=== PATIENT | female | born 1995 | race Caucasian/White ===

== ENCOUNTER 2020-11-14 01:40 | Inpatient (IN) | payer MEDICAID, SELFPAY ==
[2020-11-14 01:40] VITALS: BP 110/62; PULSE 86; RESP 15; TEMP 37.1; O2SAT 96
[2020-11-14 01:41] VITALS: BMI 24.2
[2020-11-14] MEDS: hyDROXYzine 25 mg Capsule 50 MG PO (02:02)
[2020-11-14] MEDS: trazodone 50 mg Tablet PO (02:03)
[2020-11-14 06:00] VITALS: BP 95/50; PULSE 88; RESP 16; TEMP 37.1; O2SAT 98
[2020-11-14 14:00] VITALS: BP 108/61; PULSE 69; RESP 18; TEMP 36.8; O2SAT 97
--- NOTE | 2020-11-14 18:58 | P.HP_ITS ---
Providers/Chief Complaint Admitting Physician: David Samson MD Chief Complaint: SI HPI NPU History of Present Illness Tanna Hollingsworth is a 25 year old female presented to the outside hospital endorsing suicidality, depression and not being on medications. She was transferred to [facility] and admitted to the neuropsychiatric unit for definitive treatment of those issues. She reports she had been inpatient psychiatrically and [facility]. She denies significant outpatient services. She reports she had been prescribed medications but had not picked them up. Then reported that at 1 point she had been on Klonopin for anxiety. She reports that she has had a suicide attempt but was unclear about when that was. She endorses smoking cigarettes, drinking alcohol sometimes, but denied marijuana or any other illicit drugs currently she reports he had been in a rehab but has never had a DUI. She reports that the reason why she is here is that she was having suicidal thoughts with difficult about how to kill herself. She does with her parents and is not really sure why things started being like this. We discussed the risk benefits and alternatives of calling Briseyda in [place] to determine what medications he has been on including those or some other antidepressant. She understood agreed proceed as documented in his note. Psychiatric history: As above. Substance use history: As above. Family history: Patient denies mental health or addiction issues on either side of the family and denies suicide attempts or completions in the family. Developmental history: There were no problems with the , or delivery, learned to walk and talk and met developmental milestones on time, and denies need for speech therapy, learning support, emotional support or special education classes. Psychosocial history: She reports her mother and father were together he was born and that she was the only product of that union. She reports that her childhood was fine and she denied any emotional, physical or sexual abuse. She graduated from high school. Reports that she not attracted any body now. Her longest relationship was 4 years. She reports he been 1 time, he never had any children, she never been in the , and she does believe in God. 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 She currently lives in a house with her parents and her little brother. Legal history: Reports been in prison 1 time. Medical history: She denies any significant medical history. Meds NPU Home Medications Medication Instructions Recorded Confirmed Last Taken Type clonazepam 0.5 mg PO TID PRN 11/14/20 11/14/20 Unknown History oxcarbazepine 900 mg PO BEDTIME 11/14/20 11/14/20 Unknown History Allergies Allergy/AdvReac Type Severity Reaction Status Date / Time No Known Allergies Allergy Verified 11/14/20 02:02 Mental Status Exam MSE Comments: This is a well-nourished well-developed white female in hospital scrubs with limited grooming and eye contact. No abnormal movement except for significant psychomotor retardation. Semicooperative with exam in mild distress. Speech was limited and decreased rate and volume. Mood described as bad, affect subdued. Thought process organized. Thought content: Patient endorsed suicidal ideation but denied homicidal ideation, she endorsed paranoia and appeared guarded, she denied auditory or visual hallucinations. Attention and concentration were mostly intact and memory was somewhat reliable but none were formally tested. She is alert and oriented x3. Insight and judgment appear limited, impulse control appeared limited. Vitals/I&O/Wt Last Vital Signs Temp 97.9 F 11/14/20 21:12 Pulse 74 11/14/20 21:12 Resp 15 11/14/20 21:12 BP 97/55 11/14/20 21:12 Pulse Ox 96 11/14/20 21:12 Weight last 48 hrs Weight 68.04 kg Weight 68.039 kg A&P Assessment and plan (1) Depression: Status: Acute (2) Methamphetamine abuse: Status: Acute (3) Psychosis: Status: Acute Additional A&P Information This is a 25-year-old white female with recent history of mental health treatment without follow-up and a positive drug screen for methamphetamines which she did not personally disclose who endorses depression and suicidality. 1. Continue current medication. 2. Continue every 15 minute checks for safety. 3. Encourage individual, group and milieu therapies. 4. Encourage sober living treatment after discharge at the highest level of care to which he is willing to commit. 5. We will determine what her medication regimen was supposed to be from her previous inpatient stay and consider restarting those medications and try to convince her that there may be benefit from an antipsychotic to help with the thought disorder which is likely drug-induced. Involuntary Hold Information 96 Hour Hold: 96 Hour Involuntary Admission: No Attestations NPU Medical Necessity Statement*: Inpatient hospitalization is medically necessary and the clinically appropriate intervention at this time. We will monitor medications and make changes as indicated. Patient will be in the hospital for over two midnights. Likely length of stay 3 to 5 days. Coding Level of Care Code Acute Manager Photography for Nima Daniesld Diagnoses Depression F32.9 Methamphetamine abuse F15.10 Psychosis F29
[2020-11-14 21:12] VITALS: BP 97/55; PULSE 74; RESP 15; TEMP 36.6; O2SAT 96
[2020-11-15 05:59] VITALS: BP 97/60; PULSE 65; RESP 17; TEMP 36.8; O2SAT 98
[2020-11-15 14:00] VITALS: BP 102/62; PULSE 81; RESP 16; TEMP 37; O2SAT 98
--- NOTE | 2020-11-15 15:32 | PC.NURSE ---
CONTACTED [facility] IN [place], [place]. PHARMACIST SAID THE PT NEVER PICKED UP PRESCRIPTIONS OF SEROQUEL 50 MG DAILY, SEROQUEL 100 MG HS, LEXAPRO 20 MG DAILY. INFO RELAYED TO DR. AWAD
[2020-11-15] MEDS: escitalopram 10 mg Tablet PO (15:39)
--- NOTE | 2020-11-15 18:14 | PM.NPN ---
Subjective NPU Subjective: Interval history: Tanna presents today continue to be isolative and likely paranoid. She continues to be resistant to the role that addiction may have played in her presentation but she is open to starting Lexapro after discussion of the risks, benefits and alternatives she understood and agreed proceed as is documented in this note. Mental Status Exam MSE Comments: This is a well-nourished well-developed white female in hospital scrubs with limited grooming and eye contact. No abnormal movement except for significant psychomotor retardation. Semicooperative with exam in mild distress. Speech was limited and decreased rate and volume. Mood described as about the same, affect subdued. Thought process organized. Thought content: Patient endorsed suicidal ideation but denied homicidal ideation, she endorsed paranoia and appeared guarded, she denied auditory or visual hallucinations. Attention and concentration were mostly intact and memory was somewhat reliable but none were formally tested. She is alert and oriented x3. Insight and judgment appear limited, impulse control appeared limited. Vitals/I&O/Wt Last Vital Signs Temp 98.0 F 11/15/20 21:59 Pulse 79 11/15/20 21:59 Resp 16 11/15/20 21:59 BP 108/68 11/15/20 21:59 Pulse Ox 97 11/15/20 21:59 A&P Additional A&P Information (1) Depression: (2) Methamphetamine abuse: (3) Psychosis: Additional A&P Information This is a 25-year-old white female with recent history of mental health treatment without follow-up and a positive drug screen for methamphetamines which she did not personally disclose who endorses depression and suicidality. 1. Continue current medication. Start Lexapro 10 mg p.o. every morning. 2. Continue every 15 minute checks for safety. 3. Encourage individual, group and milieu therapies. 4. Encourage sober living treatment after discharge at the highest level of care to which he is willing to commit. 5. Try to convince her that there may be benefit from an antipsychotic to help with the thought disorder which is likely drug-induced. Involuntary Hold Information 96 Hour Hold: 96 Hour Involuntary Admission: No Attestations NPU Medical Necessity Statement*: Inpatient hospitalization is medically necessary and the clinically appropriate intervention at this time. We will monitor medications and make changes as indicated. Likely length of stay 2-4 days. Coding Level of Care Code Acute Communications Controller for Nima Maurer
[2020-11-15] MEDS: acetaminophen 325 mg Tablet 650 MG PO (18:41)
[2020-11-15 21:59] VITALS: BP 108/68; PULSE 79; RESP 16; TEMP 36.7; O2SAT 97
[2020-11-16 06:00] VITALS: BP 89/62; PULSE 63; RESP 18; TEMP 36.7; O2SAT 98
[2020-11-16] MEDS: escitalopram 10 mg Tablet PO (07:37)
[2020-11-16 14:00] VITALS: BP 104/57; PULSE 66; RESP 20; TEMP 36.8; O2SAT 93
--- NOTE | 2020-11-16 16:08 | PM.NPN ---
Subjective NPU Subjective: Interval history: The patient reports feeling better today, less depressed. No side effects on Lexapro. Slept okay last night. Quite eager to go home. Says that suicidal ideation is much decreased. Mental Status Exam MSE Comments: This is a well-nourished well-developed white female in hospital scrubs with limited grooming and eye contact. No abnormal movement except for some psychomotor retardation. More cooperative with exam today. Quantity of speech was improved. Mood described as improved, affect fairly pleasant. Thought process organized. Thought content: Patient endorsed suicidal ideation but says it is better. She denied homicidal ideation, she endorsed paranoia and appeared guarded, she denied auditory or visual hallucinations. Attention and concentration were mostly intact and memory was somewhat reliable but none were formally tested. She is alert and oriented x3. Insight and judgment appear limited, impulse control appeared limited. Vitals/I&O/Wt Last Vital Signs Temp 98.8 F 11/17/20 20:15 Pulse 71 11/17/20 20:15 Resp 18 11/17/20 20:15 BP 97/58 11/17/20 20:15 Pulse Ox 97 11/17/20 20:15 11/17/20 11/17/20 11/17/20 06:59 14:59 22:59 Intake Total Balance A&P Additional A&P Information (1) Depression: (2) Methamphetamine abuse: (3) Psychosis: Additional A&P Information This is a 25-year-old white female with recent history of mental health treatment without follow-up and a positive drug screen for methamphetamines which she did not personally disclose who endorses depression and suicidality. 1. Continue current medication. Started Lexapro 10 mg p.o. every morning. 2. Continue every 15 minute checks for safety. 3. Encourage individual, group and milieu therapies. 4. Encourage sober living treatment after discharge at the highest level of care to which he is willing to commit. 5. Try to convince her that there may be benefit from an antipsychotic to help with the thought disorder which is likely drug-induced. 6. Patient is voluntary and eager to leave. Willing to stay 1 more day. Involuntary Hold Information 96 Hour Hold: 96 Hour Involuntary Admission: No Attestations NPU Medical Necessity Statement*: Inpatient hospitalization is medically necessary and the clinically appropriate intervention at this time. We will monitor medications and make changes as indicated. Likely length of stay 1-3 days. Coding Level of Care Code Acute Air Cargo Specialist for Nima Maurer
[2020-11-16] MEDS: acetaminophen 325 mg Tablet 650 MG PO (17:38)
[2020-11-16 22:00] VITALS: BP 104/57; PULSE 66; RESP 17; TEMP 36.8; O2SAT 93
[2020-11-17 06:00] VITALS: BP 101/64; PULSE 66; RESP 18; TEMP 36.7; O2SAT 99
[2020-11-17] MEDS: acetaminophen 325 mg Tablet 650 MG PO (06:28)
[2020-11-17] MEDS: escitalopram 10 mg Tablet PO (08:54)
[2020-11-17 11:39] VITALS: BP 101/64; PULSE 66; RESP 18; TEMP 36.7; O2SAT 99
--- NOTE | 2020-11-17 11:58 | P.DS_ITS ---
Diagnoses at Discharge Discharge Diagnosis (1) Methamphetamine abuse: Status: Chronic Reason for Visit Reason for Visit: SI Involuntary Hold Information 96 Hour Hold: 96 Hour Involuntary Admission: No Discharge Data Vitals: Last Vital Signs Temp 98.1 F 11/17/20 11:39 Pulse 66 11/17/20 11:39 Resp 18 11/17/20 11:39 BP 101/64 11/17/20 11:39 Pulse Ox 99 11/17/20 11:39 Discharge Plan Discharge Condition: Stable Prescriptions: New escitalopram oxalate 10 mg Tablet 10 mg PO DAILY 30 Days Qty: 30 RF: 1 Discontinued clonazepam 0.5 mg tablet 0.5 mg PO TID PRN (Reason: Anxiety) RF: 0 oxcarbazepine 300 mg tablet 900 mg PO BEDTIME RF: 0 Discharge Orders: Discharge Order (Routine); Ordered 11/17/20 Ordered By: Alan Georges Referrals: [facility] [Other] - 11/23/20 1:00 am (Please arrive 30 minutes early to fill out paperwork. 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 Masks are required to enter building. ) [facility] [Other] (Please call to schedule an appointment. ) [facility] [Outside] Discharge Diet: Usual diet Discharge Activity: Resume usual activity Patient Instructions: Generalized Anxiety Disorder (DC), Opioid Safety Coding Level of Care Code Acute Chg FW DC note Diagnoses Methamphetamine abuse F15.10
[2020-11-17] MEDS: OLANZapine 5 mg ODT PO (13:16)
[2020-11-17] MEDS: nicotine 2 mg Gum BUCCAL (13:24)
[2020-11-17] MEDS: ziprasidone 20 mg/mL SDV IM (13:38)
[2020-11-17] MEDS: water for injection-sterile 10 ML (13:49)
[2020-11-17] MEDS: ziprasidone 20 mg/mL SDV (13:51)
--- NOTE | 2020-11-17 15:20 | PC.NURSE ---
PRN Apx 1350 pt became very agitated when she was informed that she was now being placed on a 96 hour hold. Pt was told previously in the day that she was going to be leaving, after her consult with . he felt that she was still a harm to herself and then placed her on a hold. Pt became very agitated and banged the phone on the wall several times, yelling and screaming, also slamming her door. Administered 20mg of Geodon, pt agreed to take anxiety med.
--- NOTE | 2020-11-17 17:16 | P.PN_ITS ---
Subjective NPU Subjective: Interval history: Patient initially reported being improved, with less suicidal ideation and depression. After her ride was arranged, she told me that she was depressed and suicidal, at the same level as when she admitted. She did not feel she could keep her self safe at home. She also says she was hearing voices all day long. After hearing this report of serious symptoms, I informed her that she would need to stay in the hospital. She then told me she was not depressed, not suicidal, not hearing voices. However she was quite agitated, confused about how the ride, which had been arranged, would be canceled. She was also agitated about the friend she was supposed to stay with. She banged the telephone very hard and yelled loudly. She ended up getting Zyprexa Zydis 5 mg and an injection of Haldol, Ativan, and Benadryl, to calm down. Mental Status Exam MSE Comments: This is a well-nourished well-developed white female in hospital scrubs with limited grooming and eye contact. No abnormal movement except for some psychomotor retardation. She became quite uncooperative. Speech was loud and pressured. Mood initially described as depressed, affect was quite agitated, anxious and angry. Thought process was disorganized. Thought content: Patient endorsed suicidal ideation saying it was worse than yesterday. She denied homicidal ideation. She described auditory hallucinations, which she said were present all of the time, all day long. This is a new report. Attention and concentration were distracted and memory was somewhat reliable but none were formally tested. She is alert and oriented x3. Insight and judgment appear limited, impulse control appeared limited. Vitals/I&O/Wt Last Vital Signs Temp 98.8 F 11/17/20 20:15 Pulse 71 11/17/20 20:15 Resp 18 11/17/20 20:15 BP 97/58 11/17/20 20:15 Pulse Ox 97 11/17/20 20:15 11/17/20 11/17/20 11/17/20 06:59 14:59 22:59 Intake Total Balance A&P Additional A&P Information (1) Depression: Worse (2) Methamphetamine abuse: (3) Psychosis: Worse Additional A&P Information This is a 25-year-old white female with recent history of mental health treatment without follow-up and a positive drug screen for methamphetamines which she did not personally disclose who endorses depression and suicidality. 1. Started Lexapro 10 mg p.o. every morning. We added Abilify 5 mg daily, to start tomorrow, for depression and psychosis. 2. Continue every 15 minute checks for safety. 3. Encourage individual, group and milieu therapies. 4. Encourage sober living treatment after discharge at the highest level of care to which he is willing to commit. 5. Try to convince her that there may be benefit from an antipsychotic to help with the thought disorder which is likely drug-induced. 6. Patient was placed on a 96-hour hold, since she had become more depressed, psychotic, and suicidal, and was refusing to stay in the hospital. Involuntary Hold Information 96 Hour Hold: 96 Hour Involuntary Admission: No Attestations NPU Medical Necessity Statement*: Inpatient hospitalization is medically necessary and the clinically appropriate intervention at this time. We will monitor medications and make changes as indicated. Likely length of stay 2?4 days. Coding Level of Care Code Acute Coloring Checker for Nima Maurer
[2020-11-17 18:30] VITALS: BP 104/62; PULSE 78; RESP 18; TEMP 36.6; O2SAT 97
[2020-11-17 20:15] VITALS: BP 97/58; PULSE 71; RESP 18; TEMP 37.1; O2SAT 97
[2020-11-18 06:00] VITALS: BP 100/64; PULSE 58; RESP 17; TEMP 36.6; O2SAT 97
[2020-11-18] MEDS: ARIPiprazole 10 mg Tablet 5 MG PO (08:46)
[2020-11-18] MEDS: escitalopram 10 mg Tablet PO (08:47)
[2020-11-18] MEDS: OLANZapine 5 mg ODT PO (13:29)
[2020-11-18 14:00] VITALS: BP 109/66; PULSE 69; RESP 17; TEMP 37.1; O2SAT 98
--- NOTE | 2020-11-18 14:39 | P.PN_ITS ---
Subjective NPU Subjective: Interval history: The patient continues to be guarded and resistant to disclosing her experiences. I talked with her some about her memory, because after she broke the phone yesterday, she did not know why it was not working. Today she says, I remember what I did yesterday. She says that the voices are not as bad today. She says she has low energy and slept most of the day. She has been anxious and biting her nails. She says it is hard to concentrate. She denies suicidal ideation. She denies side effects after starting the Abilify. Mental Status Exam MSE Comments: This is a well-nourished well-developed white female in hospital scrubs with limited grooming and eye contact. Minimally cooperative. No psychomotor agitation or retardation. Speech was soft at a regular rate and rhythm. Mood is depressed, affect was anxious and irritable. Thought process was somewhat blocked. Thought content: Patient denied suicidal and homicidal ideation. She continues to have auditory hallucinations, which she says are not as loud or as threatening as before. Attention and concentration are distracted and memory was somewhat reliable but not formally tested. She is alert and oriented x3. Insight and judgment appear limited, impulse control appeared limited. Vitals/I&O/Wt Last Vital Signs Temp 99.1 F 11/19/20 14:00 Pulse 78 11/19/20 14:00 Resp 18 11/19/20 14:00 BP 107/56 11/19/20 14:00 Pulse Ox 97 11/19/20 14:00 A&P Assessment and plan (1) Major depressive disorder, single episode, severe, with psychosis: On Lexapro 10 mg daily and Abilify 5 mg daily Depression continues but psychosis is a little better Status: Acute (2) Methamphetamine abuse: Considering attending substance use treatment Status: Acute (3) Anxiety disorder, unspecified: Has prn medication available Status: Acute Additional A&P Information This is a 25-year-old white female with recent history of mental health treatment without follow-up and a positive drug screen for methamphetamines which she did not personally disclose who endorses depression, suicidality and hearing voices. 1. Started Lexapro 10 mg p.o. every morning. We added Abilify 5 mg daily, to start tomorrow, for depression and psychosis. 2. Continue every 15 minute checks for safety. 3. Encourage individual, group and milieu therapies. 4. Encourage sober living treatment after discharge at the highest level of care to which he is willing to commit. 5. Patient was placed on a 96-hour hold, since she had become more depressed, psychotic, and suicidal, and was refusing to stay in the hospital. Involuntary Hold Information 96 Hour Hold: 96 Hour Involuntary Admission: No Attestations NPU Medical Necessity Statement*: Inpatient hospitalization is medically necessary and the clinically appropriate intervention at this time. We will monitor medications and make changes as indicated. Likely length of stay 2?4 days. Coding Level of Care Code Acute Cooler Operator for lyssa Fwd Diagnoses Major depressive disorder, single episode, severe, with psychosis F32.3 Methamphetamine abuse F15.10 Anxiety disorder, unspecified F41.9
--- NOTE | 2020-11-18 14:48 | PC.NURSE ---
prn 1329 administered 5mg Zyprexa Zydis for anxiety and pt reported hearing voices. will continue to monitor.
[2020-11-18 22:00] VITALS: BP 108/71; PULSE 76; RESP 17; TEMP 36.9; O2SAT 98
[2020-11-18] MEDS: acetaminophen 325 mg Tablet 650 MG PO (22:18)
[2020-11-18] MEDS: trazodone 50 mg Tablet PO (22:18)
[2020-11-19 06:00] VITALS: BP 97/55; PULSE 84; RESP 18; TEMP 37.1; O2SAT 97
[2020-11-19] MEDS: acetaminophen 325 mg Tablet 650 MG PO ×2 (06:06→20:48)
[2020-11-19] MEDS: ARIPiprazole 10 mg Tablet 5 MG PO (08:28)
[2020-11-19] MEDS: nicotine 2 mg Gum BUCCAL ×2 (08:29→12:49)
[2020-11-19] MEDS: escitalopram 10 mg Tablet PO (08:29)
--- NOTE | 2020-11-19 12:03 | P.PN_ITS ---
Subjective NPU Subjective: Interval history: I met with the patient on the bench by the nurses station. Again, she continues to be guarded and only somewhat cooperative. She does not agree that she has the level of severity of illness that her assessment indicates. She says that her mood is okay and she does not feel depressed. She says her appetite is okay, her energy and motivation are low, and she continues to feel nervous about the future. She does not know where she is going to live, for example. She says she could not fall asleep last night and took trazodone, which she thinks made her more awake. She says she has taken melatonin in the past, and thinks she took 30 mg. I explained that that is 3 times the usual maximum dose. She would like to try a lower dose. At a certain point she got frustrated with my questions and just stood up and left. Mental Status Exam MSE Comments: This is a well-nourished well-developed white female in hospital scrubs whose grooming is better. Her eye contact is limited. Minimally cooperative. Some psychomotor agitation. Speech was soft at a regular rate and rhythm. She describes her mood as not depressed but her affect was anxious and irritable. Thought process was somewhat blocked. Thought content: Patient denied suicidal and homicidal ideation. She continues to have auditory hallucinations. Attention and concentration are distracted and memory was somewhat reliable but not formally tested. She is alert and oriented x3. Insight and judgment continue to be limited, impulse control appeared limited. Vitals/I&O/Wt Last Vital Signs Temp 99.1 F 11/19/20 14:00 Pulse 78 11/19/20 14:00 Resp 18 11/19/20 14:00 BP 107/56 11/19/20 14:00 Pulse Ox 97 11/19/20 14:00 A&P Assessment and plan (1) Major depressive disorder, single episode, severe, with psychosis: On Lexapro 10 mg daily and Abilify 5 mg daily Looks depressed and continues to have some psychosis Status: Acute (2) Anxiety disorder, unspecified: Status: Acute (3) Methamphetamine abuse: Status: Chronic Additional A&P Information This is a 25-year-old white female with recent history of mental health treatment without follow-up and a positive drug screen for methamphetamines which she did not personally disclose who endorses depression, suicidality and hearing voices. 1. Started Lexapro 10 mg p.o. every morning. We added Abilify 5 mg daily, to start tomorrow, for depression and psychosis. 2. Continue every 15 minute checks for safety. 3. Encourage individual, group and milieu therapies. 4. Encourage sober living treatment after discharge at the highest level of care to which he is willing to commit. 5. Patient was placed on a 96-hour hold, since she had become more depressed, psychotic, and suicidal, and was refusing to stay in the hospital. Involuntary Hold Information 96 Hour Hold: 96 Hour Involuntary Admission: No Attestations NPU Medical Necessity Statement*: Inpatient hospitalization is medically necessary and the clinically appropriate intervention at this time. We will monitor me dications and make changes as indicated. Likely length of stay 2?4 days. Coding Level of Care Code Acute Yarn Examiner Skeins for g Fwd Diagnoses Major depressive disorder, single episode, severe, with psychosis F32.3 Anxiety disorder, unspecified F41.9 Methamphetamine abuse F15.10
[2020-11-19 14:00] VITALS: BP 107/56; PULSE 78; RESP 18; TEMP 37.3; O2SAT 97
[2020-11-19] MEDS: nicotine 21 mg Patch 1 PATCH TRANSDERMA (14:06)
[2020-11-19] MEDS: trazodone 50 mg Tablet PO (20:47)
[2020-11-19] MEDS: OLANZapine 5 mg ODT PO (20:49)
[2020-11-19 20:51] VITALS: BP 118/75; PULSE 93; RESP 18; TEMP 38.1; O2SAT 98
--- NOTE | 2020-11-19 20:55 | PC.NURSE ---
trazodone 50mg given for sleep. Zyprexa 5mg given PO anxiety / agitation
[2020-11-20 06:00] VITALS: BP 100/63; PULSE 86; RESP 16; TEMP 37.2; O2SAT 99
[2020-11-20] MEDS: ARIPiprazole 10 mg Tablet 5 MG PO ×2 (08:07→14:13)
[2020-11-20] MEDS: escitalopram 10 mg Tablet PO (08:07)
[2020-11-20] MEDS: nicotine 21 mg Patch 1 PATCH TRANSDERMA (10:21)
[2020-11-20 14:00] VITALS: BP 109/73; PULSE 89; RESP 16; TEMP 36.8; O2SAT 98
[2020-11-20] MEDS: escitalopram 10 mg Tablet 5 MG PO (14:13)
--- NOTE | 2020-11-20 14:16 | PM.NPN ---
Subjective NPU Subjective: Interval history: The patient was in quite a different space today. She apologized for getting irritated with me yesterday. She said she had been looking around, and did not want to end up like some of our older patients. She said she needed to get her stuff together. In spite of this insight, she says that her mood is still quite depressed and anxious. She told me about her social anxiety. She struggles with big crowds, going to [facility], even in gas stations. She feels that people are staring at her and talking about her. She realizes how much this has impacted her life. She feels that the social anxiety began between 1 and 2 years ago. She also started hearing voices about a year ago. While sometimes they bother her, sometimes she feels it is nice to have someone to talk to. She also reports ideas of reference, feeling that the television is talking at her at times. The voices are worse when she is laying in bed, i.e., not distracted. They are at the same volume as they have been they do tell her to do things, like stay in her room. There are no commands to harm herself or others. We also talked about what she will need to do to get her life together. She really wants to treat her anxiety and the voices. She would also like to get a job. She now feels it would be a good idea for her to go to substance use rehabilitation inpatient treatment. She would like to go to [facility], where she has been before, if possible. The patient says that she took some medication previously that was helpful. Recalled [facility] pharmacy in [place], [place]. She had prescriptions for Seroquel 50 mg daily, Seroquel 100 mg at at bedtime, and Lexapro 20 mg daily. She never picked these medications up, but they were likely the medicine she was referring to is helpful. Mental Status Exam MSE Comments: This is a well-nourished well-developed white female in hospital scrubs whose grooming is good. Her eye contact is much better today. More cooperative. Some psychomotor agitation. Speech was at a regular rate and rhythm and volume. She describes her mood as depressed and anxious. Affect is serious but pleasant. Thought process is logical and goal-directed. Thought content: Patient denied suicidal and homicidal ideation. She continues to have auditory hallucinations. No delusions are noted. Attention and concentration are intact. Memory is reliable but not formally tested. She is alert and oriented x3. Insight and judgment are much improved, impulse control is improved. Vitals/I&O/Wt Last Vital Signs Temp 99.0 F 11/20/20 06:00 Pulse 86 11/20/20 06:00 Resp 16 11/20/20 06:00 BP 100/63 11/20/20 06:00 Pulse Ox 99 11/20/20 06:00 Weight last 48 hrs Weight 68.04 kg A&P Assessment and plan (1) Major depressive disorder, single episode, severe, with psychosis: Status: Acute (2) Social anxiety disorder: Status: Acute (3) Anxiety disorder, unspecified: Status: Acute (4) Methamphetamine abuse: Status: Chronic Additional A&P Information This is a 25-year-old white female with recent history of mental health treatment without follow-up and a positive drug screen for methamphetamines which she did not personally disclose who endorses depression, suicidality and hearing voices. 1. Increase Lexapro to 15 mg every morning. Increase Abilify to 10 mg daily, for depression and psychosis. Add Seroquel 50 mg 4 times daily as needed for anxiety. 2. Continue every 15 minute checks for safety. 3. Encourage individual, group and milieu therapies. 4. Encourage sober living treatment after discharge at the highest level of care to which he is willing to commit. 5. Patient was placed on a 96-hour hold, since she had become more depressed, psychotic, and suicidal, and was refusing to stay in the hospital. 6. Seek placement at a substance use treatment facility. Involuntary Hold Information 96 Hour Hold: 96 Hour Involuntary Admission: No Attestations NPU Medical Necessity Statement*: Inpatient hospitalization is medically necessary and the clinically appropriate intervention at this time. We will monitor medications and make changes as indicated. Likely length of stay 1-3 days. Coding Level of Care Code Acute Air Quality Manager for g Fwd Diagnoses Major depressive disorder, single episode, severe, with psychosis F32.3 Social anxiety disorder F40.10 Anxiety disorder, unspecified F41.9 Methamphetamine abuse F15.10
[2020-11-20 22:00] VITALS: BP 104/65; PULSE 88; RESP 17; TEMP 37.1; O2SAT 96
[2020-11-21 06:00] VITALS: BP 99/66; PULSE 86; RESP 15; TEMP 36.9; O2SAT 97
[2020-11-21] MEDS: escitalopram 10 mg Tablet 15 MG PO (07:54)
[2020-11-21] MEDS: ARIPiprazole 10 mg Tablet PO (07:54)
[2020-11-21] MEDS: nicotine 21 mg Patch 1 PATCH TRANSDERMA (08:06)
[2020-11-21] MEDS: quetiapine 25 mg Tablet 50 MG PO (10:37)
--- NOTE | 2020-11-21 10:37 | PC.NURSE ---
Addendum entered by Maddie Jeronimo LPN 11/21/20 11:15: PRN MED EFFECTIVE NO FURTHER C/O ANXIETY Original Note: PRN SEROQUEL 50 MG GIVEN PO PER PHYSICIAN REQUEST AND PT C/O ANXIETY WILL CONT TO MONITOR
--- NOTE | 2020-11-21 11:53 | P.PN_ITS ---
Subjective NPU Subjective: Interval history: I had another long talk with the patient today. When I asked her how her mood is she replies, not bad, all right. When I ask if she could rate her depression between 0 and 10, she rates it at 7/10, which is quite high. She becomes tearful as she says that she actually does feel depressed. She just does not show it to people. She says she has no motivation to live really. She says she knows that her family cares about her, but she is telling herself that they do not care. This is the way that it feels to her. She has both passive and active suicidal ideation. She rates her anxiety at 8/10?9/10 in severity. Talked about using Seroquel to treat her anxiety. She did not take an as needed dose of Seroquel yesterday but will try 1 today. The hallucinations continue but there are no commands to harm self or others. She does not crave drugs, only cigarettes. She has no side effects from the increase in medication. Mental Status Exam MSE Comments: This is a well-nourished well-developed white female in hospital scrubs whose grooming is good. Her eye contact is improved. Cooperative. Some psychomotor agitation. Speech was at a regular rate and rhythm and volume. She describes her mood as depressed and anxious. Affect is serious and becomes tearful when talking about how bad she feels. Thought process is logical and goal-directed. Thought content: Patient admits to having suicidal ideation today. She continues to have auditory hallucinations. No delusions are noted. Attention and concentration are intact. Memory is reliable but not formally tested. She is alert and oriented x3. Insight and judgment are much improved, impulse control is improved. Vitals/I&O/Wt Last Vital Signs Temp 98.7 F 11/21/20 14:00 Pulse 98 11/21/20 14:00 Resp 17 11/21/20 14:00 BP 105/71 11/21/20 14:00 Pulse Ox 98 11/21/20 14:00 Weight last 48 hrs Weight 68.04 kg A&P Assessment and plan (1) Social anxiety disorder: Status: Acute (2) Major depressive disorder, single episode, severe, with psychosis: Status: Acute (3) Anxiety disorder, unspecified: Status: Acute (4) Methamphetamine abuse: Status: Chronic Additional A&P Information This is a 25-year-old white female with recent history of mental health treatment without follow-up and a positive drug screen for methamphetamines which she did not personally disclose who endorses depression, suicidality and hearing voices. 1. Increase Lexapro to 15 mg every morning. Increase Abilify to 10 mg daily, for depression and psychosis. Add Seroquel 50 mg 4 times daily as needed for anxiety. 2. Continue every 15 minute checks for safety. 3. Encourage individual, group and milieu therapies. 4. Encourage sober living treatment after discharge at the highest level of care to which he is willing to commit. 5. Patient was placed on a 96-hour hold, since she had become more depressed, psychotic, and suicidal, and was refusing to stay in the hospital. 6. Seek placement at a substance use treatment facility. Involuntary Hold Information 96 Hour Hold: 96 Hour Involuntary Admission: No Attestations NPU Medical Necessity Statement*: Inpatient hospitalization is medically necessary and the clinically appropriate intervention at this time. We will monitor medications and make changes as indicated. Likely length of stay 2-3 days. Coding Level of Care Code Acute Outdoor Studies Director for Dreag Fwd Diagnoses Social anxiety disorder F40.10 Major depressive disorder, single episode, severe, with psychosis F32.3 Anxiety disorder, unspecified F41.9 Methamphetamine abuse F15.10
[2020-11-21 14:00] VITALS: BP 105/71; PULSE 98; RESP 17; TEMP 37.1; O2SAT 98
[2020-11-21] MEDS: acetaminophen 325 mg Tablet 650 MG PO (17:39)
[2020-11-21 20:53] VITALS: BP 124/74; PULSE 98; RESP 15; TEMP 36.7; O2SAT 98
[2020-11-22 06:00] VITALS: BP 115/49; PULSE 88; RESP 17; TEMP 36.9; O2SAT 98
[2020-11-22] MEDS: escitalopram 10 mg Tablet 15 MG PO (07:55)
[2020-11-22] MEDS: ARIPiprazole 10 mg Tablet PO (07:56)
[2020-11-22] MEDS: nicotine 21 mg Patch 1 PATCH TRANSDERMA (10:15)
[2020-11-22] MEDS: quetiapine 25 mg Tablet 50 MG PO (11:47)
--- NOTE | 2020-11-22 11:48 | PC.NURSE ---
PRN SEROQUEL 50 MG GIVEN PO PER PT C/O ANXIETY. PT UPSET ABOUT POSSIBLE DISCHARGE TOMORROW. WILL CONT TO MONITOR
[2020-11-22 14:00] VITALS: BP 130/70; PULSE 109; RESP 17; TEMP 36.8; O2SAT 97
--- NOTE | 2020-11-22 14:10 | P.PN_ITS ---
Subjective NPU Subjective: Interval history: The patient says that she is still feeling depressed, although to her depressed means not wanting to do much, having little motivation, and having little hope for the future. She has a hard time identifying her actual mood. She does says she feels anxious a lot of the time. She says she has been enduring the same level of distress for a number of months. She continues to have intermittent wishes that she were , and occasional thoughts of suicide. Again, she has endured this level of suicidal ideation for months if not years. She says that the voices have diminished to only calling her name at this point. She thinks that the Abilify may be causing her to be hungry. She did try Seroquel 50 mg yesterday for anxiety, and says that it made her pretty sleepy. We talked about decreasing the dose to 25 mg. We also talked about adding Seroquel 100 mg at bedtime for insomnia. Mental Status Exam MSE Comments: This is a well-nourished well-developed white female in hospital scrubs whose grooming is fairly good. Her eye contact is fair. Cooperative. No psychomotor agitation or retardation. Speech was at a regular rate and rhythm and volume. She describes her mood as depressed and anxious. Affect is serious but she is not tearful today when talking about how bad she feels. Thought process is logical and goal-directed. Thought content: Patient admits to having suicidal ideation today. She continues to have auditory hallucinations. No delusions are noted. Attention and concentration are intact. Memory is reliable but not formally tested. She is alert and oriented x3. Insight and judgment are much improved, impulse control is improved. Vitals/I&O/Wt Last Vital Signs Temp 98.4 F 11/22/20 06:00 Pulse 88 11/22/20 06:00 Resp 17 11/22/20 06:00 BP 115/49 11/22/20 06:00 Pulse Ox 98 11/22/20 06:00 A&P Assessment and plan (1) Social anxiety disorder: Status: Acute (2) Major depressive disorder, single episode, severe, with psychosis: Status: Acute (3) Anxiety disorder, unspecified: Status: Acute (4) Methamphetamine abuse: Status: Chronic Additional A&P Information 1. Increase Lexapro to 20 mg every morning. Keep Abilify at 10 mg daily, for depression and psychosis. Change Seroquel to 25 mg 4 times daily as needed for anxiety. Add Seroquel 100 mg at bedtime for insomnia. 2. Continue every 15 minute checks for safety. 3. Encourage individual, group and milieu therapies. 4. Encourage sober living treatment after discharge at the highest level of care to which he is willing to commit. 5. Patient was placed on a 96-hour hold, since she had become more depressed, psychotic, and suicidal, and was refusing to stay in the hospital. 6. Seek placement at a substance use treatment facility. Involuntary Hold Information 96 Hour Hold: 96 Hour Involuntary Admission: No Attestations NPU Medical Necessity Statement*: Inpatient hospitalization is medically necessary and the clinically appropriate intervention at this time. We will monitor medications and make changes as indicated. Likely length of stay 1-2 days. Coding Level of Care Code Acute Teacher Specialist for Nima Maurer Diagnoses Social anxiety disorder F40.10 Major depressive disorder, single episode, severe, with psychosis F32.3 Anxiety disorder, unspecified F41.9 Methamphetamine abuse F15.10
[2020-11-22] MEDS: escitalopram 10 mg Tablet 5 MG PO (15:30)
[2020-11-22] MEDS: acetaminophen 325 mg Tablet 650 MG PO (17:50)
[2020-11-22] MEDS: benzocaine 20% 7 gm 1 APPLIC TOPICAL (17:50)
[2020-11-22] MEDS: quetiapine 100 mg Tablet PO (20:16)
[2020-11-22] MEDS: trazodone 50 mg Tablet PO (20:16)
[2020-11-22 20:22] VITALS: BP 112/69; PULSE 94; RESP 18; TEMP 37.7; O2SAT 97
--- NOTE | 2020-11-22 20:58 | PC.NURSE ---
Pt requested sleep med, Trazodone 50mg po given.
[2020-11-23 06:00] VITALS: BP 101/68; PULSE 94; RESP 18; TEMP 36.7; O2SAT 97
[2020-11-23] MEDS: escitalopram 10 mg Tablet 20 MG PO (08:04)
[2020-11-23] MEDS: ARIPiprazole 10 mg Tablet PO (08:04)
[2020-11-23] MEDS: nicotine 21 mg Patch 1 PATCH TRANSDERMA (09:00)
--- NOTE | 2020-11-23 10:59 | PM.NPN ---
Subjective NPU Subjective: Interval history: The patient was initially hopeful about transferring to a rehab facility, and reported an improvement in mood and outlook. When I discussed not prescribing Klonopin for her she became irritable and more anxious. She told me in the past few days that Seroquel has been helpful for her anxiety, but now minimizes its effectiveness. We did problem solving for how she might manage some of her challenges, such as finding a physician when she gets to the rehab facility. The social service technician did confirm that [facility] care. She says that, if she could, she would like to just stay here indefinitely. I talked about hospitalization being for the short-term, and discussed plans to discharge her tomorrow. Mental Status Exam MSE Comments: I met with the patient in the day room, and she was cooperative, interactive, and made fair eye contact. No psychomotor agitation or retardation until I said that she could not have Klonopin, at which point she became fidgety. Speech was at a regular rate and rhythm and volume. She reports her mood to be depressed and anxious. Affect is anxious but she is not tearful. Thought process is logical and goal-directed. Thought content: Patient reports chronic suicidal ideation which she has learned to live with.. She continues to have auditory hallucinations. No delusions are noted. Attention and concentration are intact. Memory is reliable but not formally tested. She is alert and oriented x3. Insight and judgment are fair, impulse control is improved. Vitals/I&O/Wt Last Vital Signs Temp 98.4 F 11/24/20 06:00 Pulse 85 11/24/20 06:00 Resp 16 11/24/20 06:00 BP 142/71 11/24/20 06:00 Pulse Ox 97 11/24/20 06:00 A&P Additional A&P Information This is a 25-year-old white female with recent history of mental health treatment without follow-up and a positive drug screen for methamphetamines which she did not personally disclose who endorses depression, suicidality and hearing voices. She is able to function fairly well within the structure and support of an inpatient facility. She likely needs this level of care for some time. We are recommending residential rehabilitation. 1. Increased Lexapro to 20 mg every morning. Keep Abilify at 10 mg daily, for depression and psychosis. Changed Seroquel to 25 mg 4 times daily as needed for anxiety. Added Seroquel 100 mg at bedtime for insomnia. 2. Continue every 15 minute checks for safety. 3. Encourage individual, group and milieu therapies. 4. Encourage sober living treatment after discharge at the highest level of care to which he is willing to commit. 5. Patient was placed on a 96-hour hold, since she had become more depressed, psychotic, and suicidal, and was refusing to stay in the hospital. It will be up tomorrow. 6. Seek placement at a substance use treatment facility. Involuntary Hold Information 96 Hour Hold: 96 Hour Involuntary Admission: No Attestations NPU Medical Necessity Statement*: Inpatient hospitalization is medically necessary and the clinically appropriate intervention at this time. We will monitor medications and make changes as indicated. Likely length of stay 1-2 days. Coding Level of Care Code Acute Compliance Investigator for Nima Maurer
[2020-11-23] MEDS: acetaminophen 325 mg Tablet 650 MG PO (11:07)
--- NOTE | 2020-11-23 11:09 | PC.NURSE ---
prn administered tylenol 650mg for pt c/o headache. Will continue to monitor.
[2020-11-23 14:00] VITALS: BP 101/64; PULSE 100; RESP 16; TEMP 37.2; O2SAT 98
[2020-11-23 20:31] VITALS: BP 111/73; PULSE 108; RESP 16; TEMP 36.8; O2SAT 95
[2020-11-23] MEDS: quetiapine 100 mg Tablet PO (22:00)
[2020-11-23] MEDS: trazodone 50 mg Tablet PO (22:00)
--- NOTE | 2020-11-23 22:05 | PC.NURSE ---
Trazodone 50mg PO given at patient request for sleep.
--- NOTE | 2020-11-24 01:29 | PC.NURSE ---
when giving pt snack, pt told me that she was going to do anything that she can to stay here until [facility]
[2020-11-24 06:00] VITALS: BP 142/71; PULSE 85; RESP 16; TEMP 36.9; O2SAT 97
[2020-11-24] MEDS: escitalopram 10 mg Tablet 20 MG PO (09:16)
[2020-11-24] MEDS: ARIPiprazole 10 mg Tablet PO (09:16)
[2020-11-24] MEDS: nicotine 21 mg Patch 1 PATCH TRANSDERMA (09:20)
--- NOTE | 2020-11-24 11:33 | P.DS_ITS ---
Diagnoses at Discharge Discharge Diagnosis (1) Methamphetamine abuse: Status: Chronic (2) Social anxiety disorder: Status: Acute (3) Major depressive disorder, single episode, severe, with psychosis: Status: Acute (4) Anxiety disorder, unspecified: Status: Acute (5) Cluster B personality disorder: Status: Suspected Reason for Visit Reason for Visit: SI Brief History: History of Present Illness Tanna Hollingsworth is a 25 year old female presented to the outside hospital endorsing suicidality, depression and not being on medications. She was transferred to [facility] and admitted to the neuropsychiatric unit for definitive treatment of those issues. She reports she had been inpatient psychiatrically and [facility]. She denies significant outpatient services. She reports she had been prescribed medications but had not picked them up. Then reported that at 1 point she had been on Klonopin for anxiety. She reports that she has had a suicide attempt but was unclear about when that was. She endorses smoking cigarettes, drinking alcohol sometimes, but denied marijuana or any other illicit drugs currently she reports he had been in a rehab but has never had a DUI. She reports that the reason why she is here is that she was having suicidal thoughts with difficult about how to kill herself. She does with her parents and is not really sure why things started being like this. We discussed the risk benefits and alternatives of calling Brise[facility]da in [place] to determine what medications he has been on including those or some other antidepressant. She understood agreed proceed as documented in his note. Hospital Course Hospital Course The patient s a 25 year old female who presented to an outside hospital endorsing suicidality, depression and not being on medications. She was admitted to the neuropsychiatric unit for definitive treatment of these issues. She was started on Lexapro 10 mg and tolerated it well. She reported that her depression improved and her suicidal ideation resolved. On 11/18/20, she was preparing for discharge, but disclosed that she was still depressed, suicidal and hearing voices. She insisted on leaving, so was placed on a 96-hour hold. She was placed on Abilify 5 mg daily to address the voices. The Lexapro was increased to 15 mg daily and Abilify was increased to 10 mg. She was receptive to treatment team recommendations and showed modest improvement and was able to contract for safety prior to discharge. During the hospitalization, patient had routine laboratory studies which were within normal limits except for few outliers. Additionally there was a general medical evaluation which was also within normal limits and revealed no new acute processes. Discharge Summary: At the time of discharge, psychosis and lethality were denied. Mood and anxiety were well managed. Patient endorsed a plan to avoid all drugs of abuse and follow-up with the aftercare recommendations of the treatment team. Patient was evaluated and deemed to be absent credible lethality, and had achieved the maximum benefit from an inpatient hospitalization, so was discharged. Involuntary Hold Information 96 Hour Hold: 96 Hour Involuntary Admission: No Mental Status Exam MSE Comments: vvv This is a well-nourished well-developed white female in hospital scrubs with limited grooming and eye contact. No abnormal movement except for significant psychomotor retardation. Semicooperative with exam in mild distress. Speech was limited and decreased rate and volume. Mood described as about the same, affect subdued. Thought process organized. Thought content: Patient endorsed suicidal ideation but denied homicidal ideation, she endorsed paranoia and appeared guarded, she denied auditory or visual hallucinations. Attention and concentration were mostly intact and memory was somewhat reliable but none were formally tested. She is alert and oriented x3. Insight and judgment appear limited, impulse control appeared limited. Discharge Data Vitals: Last Vital Signs Temp 98.1 F 11/17/20 06:00 Pulse 66 11/17/20 06:00 Resp 18 11/17/20 06:00 BP 101/64 11/17/20 06:00 Pulse Ox 99 11/17/20 06:00 Discharge Plan Discharge Condition: Stable Prescriptions: New escitalopram oxalate 10 mg Tablet 20 mg PO DAILY 30 Days Qty: 60 RF: 0 quetiapine 25 mg Tablet 25 mg PO QID PRN (Reason: Anxiety) 30 Days Qty: 10 RF: 0 trazodone 50 mg Tablet 50 mg PO BEDTIME PRN (Reason: Sleep) 30 Days Qty: 10 RF: 0 quetiapine 100 mg Tablet 100 mg PO BEDTIME 30 Days Qty: 30 RF: 0 aripiprazole 10 mg Tablet 30 mg PO DAILY Qty: 30 RF: 0 hydroxyzine HCl 25 mg tablet 25 mg PO BID PRN (Reason: anxiety) Qty: 20 RF: 0 Discontinued clonazepam 0.5 mg tablet 0.5 mg PO TID PRN (Reason: Anxiety) RF: 0 oxcarbazepine 300 mg tablet 900 mg PO BEDTIME RF: 0 Referrals: [facility] [Other] (Please call to schedule an appointment. ) [facility] [Other] (Please call to schedule an appointment. ) [facility] ([facility]) [Other] (Please call to schedule an appointment to receive services. No insurance required. ) Discharge Diet: Usual diet Discharge Activity: Resume usual activity Patient Instructions: Generalized Anxiety Disorder (DC), Opioid Safety Discharge Attestations NPU Time Spent in Discharge Care*: greater than 30 min Specific Discharge Activities: Specific discharge activities: educating pa tient, discussing with pcp/other providers, discussing with vocational case manager/social workers/dc planners, documenting/other paperwork and evaluating patient/reviewing data Status at Discharge: Cognitive status at discharge: cognitively intact , Behavioral status at discharge: cooperative , Functional status at discharge: independent ambulation Overall status at discharge: patient is progressing back to baseline Coding Level of Care Code Acute Chg FW DC note Diagnoses Methamphetamine abuse F15.10 Social anxiety disorder F40.10 Major depressive disorder, single episode, severe, with psychosis F32.3 Anxiety disorder, unspecified F41.9 Cluster B personality disorder F60.89
[2020-11-24 13:42] VITALS: BP 142/71; PULSE 85; RESP 16; TEMP 36.9; O2SAT 97
[2020-11-24 15:37] VITALS: BP 142/71; PULSE 85; RESP 16; TEMP 36.9; O2SAT 97
--- NOTE | 2020-12-05 08:52 | PM.NDC ---
Diagnoses at Discharge Discharge Diagnosis (1) Methamphetamine abuse: Status: Chronic (2) Social anxiety disorder: Status: Acute (3) Major depressive disorder, single episode, severe, with psychosis: Status: Resolved (4) Anxiety disorder, unspecified: Status: Resolved (5) Cluster B personality disorder: Status: Suspected Reason for Visit Reason for Visit: SI Hospital Course Hospital Course The patient s a 25 year old female who presented to an outside hospital endorsing suicidality, depression and not being on medications. She was admitted to the neuropsychiatric unit for definitive treatment of these issues. She was started on Lexapro 10 mg and tolerated it well. She reported that her depression improved and her suicidal ideation resolved. On 11/18/20, she was preparing for discharge, but disclosed that she was still depressed, suicidal and hearing voices. She insisted on leaving, so was placed on a 96-hour hold. She was placed on Abilify 5 mg daily to address the voices. The Lexapro was increased to 15 mg daily and Abilify was increased to 10 mg. Suicidal ideation and voices subsided on this regimen. She was receptive to treatment team recommendations and showed modest improvement and was able to contract for safety prior to discharge. During the hospitalization, patient had routine laboratory studies which were within normal limits except for few outliers. Additionally there was a general medical evaluation which was also within normal limits and revealed no new acute processes. Discharge Summary: At the time of discharge, psychosis and lethality were denied. Mood and anxiety were better managed. Patient endorsed a plan to avoid all drugs of abuse and follow-up with the aftercare recommendations of the treatment team. Patient was evaluated and deemed to be absent credible lethality, and had achieved the maximum benefit from an inpatient hospitalization, so was discharged. Involuntary Hold Information 96 Hour Hold: 96 Hour Involuntary Admission: No Discharge Data Vitals: Last Vital Signs Temp 98.4 F 11/24/20 15:37 Pulse 85 11/24/20 15:37 Resp 16 11/24/20 15:37 BP 142/71 11/24/20 15:37 Pulse Ox 97 11/24/20 15:37 Discharge Plan Discharge Patient Disposition: Home Condition: Stable Prescriptions: New escitalopram oxalate 10 mg Tablet 20 mg PO DAILY 30 Days Qty: 60 RF: 0 quetiapine 25 mg Tablet 25 mg PO QID PRN (Reason: Anxiety) 30 Days Qty: 10 RF: 0 trazodone 50 mg Tablet 50 mg PO BEDTIME PRN (Reason: Sleep) 30 Days Qty: 10 RF: 0 quetiapine 100 mg Tablet 100 mg PO BEDTIME 30 Days Qty: 30 RF: 0 aripiprazole 10 mg Tablet 30 mg PO DAILY Qty: 30 RF: 0 hydroxyzine HCl 25 mg tablet 25 mg PO BID PRN (Reason: anxiety) Qty: 20 RF: 0 Discontinued clonazepam 0.5 mg tablet 0.5 mg PO TID PRN (Reason: Anxiety) RF: 0 oxcarbazepine 300 mg tablet 900 mg PO BEDTIME RF: 0 Discharge Orders: Discharge Order (Routine); Ordered 11/24/20 Ordered By: Alan Georges Referrals: [facility] [Other] (Please call to schedule an appointment. ) [facility] [Other] (Please call to schedule an appointment. ) [facility]ivani G[facility]mez ([facility]) [Other] (Please call to schedule an appointment to receive services. No insurance required. ) Discharge Diet: Usual diet Discharge Activity: Resume usual activity Patient Instructions: Generalized Anxiety Disorder (DC), Opioid Safety Discharge Attestations NPU Status at Discharge: Cognitive status at discharge: cognitively intact, Behavioral status at discharge: cooperative, Functional status at discharge: independent ambulation Overall status at discharge: patient is progressing back to baseline Coding Level of Care Code Acute Chg FW DC note Diagnoses Methamphetamine abuse F15.10 Social anxiety disorder F40.10 Major depressive disorder, single episode, severe, with psychosis F32.3 Anxiety disorder, unspecified F41.9 Cluster B personality disorder F60.89
== END 2020-11-24 16:35 | disposition home or self-care (01) | DRG 885 ==
PROVIDERS: Admitting Provider Psychiatry & Neurology Psychiatry; Visit Provider Psychiatry & Neurology Child & Adolescent Psychiatry
DX: F32.3 Major depressive disorder, single episode, severe with psychotic features (principal); R45.851 Suicidal ideations; F15.14 Other stimulant abuse with stimulant-induced mood disorder; F15.159 Other stimulant abuse with stimulant-induced psychotic disorder, unspecified; F41.8 Other specified anxiety disorders; F60.89 Other specific personality disorders; F17.210 Nicotine dependence, cigarettes, uncomplicated; Z91.5 Personal history of self-harm
CPT/HCPCS: 96372; J3486